=== PATIENT | male | born 1980 | race Caucasian/White ===

== ENCOUNTER 2016-05-29 11:18 | Emergency (ER) | payer OTHER ==
[2016-05-29 12:43] VITALS: BP 181/125
--- NOTE | 2016-05-29 12:44 | UC ---
Lower Extremity/Ankle HPI - HPI Summary HPI Summary: right great toe pain x several days. No prior hx gout. No injury. - History of Current Complaint Chief Complaint: UCLowerExtremity Stated Complaint: RIGHT FOOT PAIN Time Seen by Provider: 05/29/16 12:40 Hx Obtained From: Patient Onset/Duration: Gradual Onset, Lasting Days, Still Present Severity Initially: Moderate Severity Currently: Moderate Pain Intensity: 7 Pain Scale Used: 0-10 Numeric Aggravating Factor(s): Standing, Ambulation Alleviating Factor(s): Nothing Able to Bear Weight: No - Risk Factors Gout Risk Factors: Male, Hypertension, Obesity DVT Risk Factors: Negative Septic Arthritis Risk Factor: Negative - Allergies/Home Medications Allergies/Adverse Reactions: Allergies Allergy/AdvReac Type Severity Reaction Status Date / Time No Known Allergies Allergy Verified 05/29/16 12:37 PMH/Surg Hx/FS Hx/Imm Hx Previously Healthy: No GI/ History Of: Reports: Ulcer - Surgical History Surgical History: None - Family History Known Family History: Positive: Hypertension, Other - no known hx gout, father with two hip replacements Negative: Diabetes - Social History Occupation: Employed Full-time Lives: With Family Alcohol Use: Daily Substance Use Type: None Smoking Status (MU): Current Some Day Smoker Type: eCigarettes, Smokeless Tobacco Length of Time of Smoking/Using Tobacco: since age 18 Have You Smoked in the Last Year: Yes Review of Systems Constitutional: Negative Skin: Negative Eyes: Negative ENT: Negative Respiratory: Negative Cardiovascular: Negative Gastrointestinal: Negative Genitourinary: Negative Motor: Negative Neurovascular: Negative Musculoskeletal: Arthralgia Neurological: Negative Psychological: Negative All Other Systems Reviewed And Are Negative: Yes Physical Exam Triage Information Reviewed: Yes Appearance: Ill-Appearing, Pain Distress, Obese Vital Signs: Initial Vital Signs Temp 98.3 F 05/29/16 12:25 Pulse 103 05/29/16 12:25 Resp 16 05/29/16 12:25 BP 181/125 05/29/16 12:25 Pulse Ox 99 05/29/16 12:25 elevated BP noted Vital Signs Reviewed: Yes Eyes: Positive: Conjunctiva Clear ENT: Positive: Normal ENT inspection Neck: Positive: Supple, Nontender Respiratory: Positive: No respiratory distress Cardiovascular: Positive: RRR, Pulses Normal, Brisk Capillary Refill Musculoskeletal: Positive: Strength Intact, ROM Intact, Other: - right great toe exquisitely painful to touch. Full ROM. No deformity. Redness without red streaks. No calf tenderness. Neurological: Positive: Alert, Muscle Tone Normal Psychological Exam: Normal Skin: Positive: Other - red right great toe Lower Extremity Course/Dx - Course Course Of Treatment: discussed eval for gout and pt declines xray and bloodwork. Will follow up with his PCP. - Differential Dx/Diagnosis Differential Diagnosis/HQI/PQRI: Cellulitis, Fracture (Closed), Gout, Phlebitis Provider Diagnoses: acute gout Discharge - Discharge Plan Condition: Stable Disposition: HOME Prescriptions: HYDROcodone/ACETAMIN 5-325 MG* [Lynn 5-325 TAB*] 1 tab PO Q4H PRN #15 tab MDD 6 PRN Reason: Pain Indomethacin CAP* [Indocin CAP*] 50 mg PO TID PRN #20 cap PRN Reason: Pain Patient Education Materials: Crutch Instructions (ED), Low Purine Diet (ED), Gout (ED) Forms: *Work Release Referrals: Anton Green MD [Medical Doctor] - Non Staff,Doctor [Primary Care Provider] -
== END 2016-05-29 13:12 | disposition home or self-care (01) ==
LOC: UCCORT 11:18
DX: M10.9 Gout, unspecified (principal); E66.9 Obesity, unspecified; F17.210 Nicotine dependence, cigarettes, uncomplicated
CPT/HCPCS: 99213; G0463

== ENCOUNTER 2016-10-19 09:08 | Emergency (ER) | payer OTHER ==
[2016-10-19 09:57] VITALS: BP 159/118
--- NOTE | 2016-10-19 09:58 | UC ---
Upper Extremity HPI - HPI Summary HPI Summary: Right middle finger crush injury. 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 Non diabetic. no bleeding. Tetanus 2011. - History of Current Complaint Chief Complaint: UCUpperExtremity Stated Complaint: RIGHT MIDDLE FINGER INJURY 10/18 Time Seen by Provider: 10/19/16 09:50 Hx Obtained From: Patient Onset/Duration: Sudden Onset Severity Initially: Severe Severity Currently: Moderate Location Of Pain: Is Discrete @ - distal right 3rd digit. Character: Sharp, Aching Aggravating Factor(s): Movement, Lifting, Flexion, Extension, Internal/External Rotation, Abduction Alleviating Factor(s): Rest Associated Signs And Symptoms: Positive: Swelling, Bruising - Allergies/Home Medications Allergies/Adverse Reactions: Allergies Allergy/AdvReac Type Severity Reaction Status Date / Time No Known Allergies Allergy Verified 10/19/16 09:38 Home Medications: Home Medications Acetaminophen TAB* [Tylenol TAB*] 650 mg PO Q4H PRN 10/19/16 [History Confirmed 10/19/16] PMH/Surg Hx/FS Hx/Imm Hx Cardiovascular History Of: Reports: Hypertension GI/ History Of: Reports: Ulcer - Surgical History Surgical History: None - Family History Known Family History: Positive: Hypertension, Other - no known hx gout, father with two hip replacements Negative: Diabetes - Social History Occupation: Employed Full-time Alcohol Use: Daily Alcohol Amount: "COUPLE BEERS/DAY" Substance Use Type: None Smoking Status (MU): Smoker, Current Status Unknown Type: eCigarettes Length of Time of Smoking/Using Tobacco: since age 18 Have You Smoked in the Last Year: Yes - Immunization History Most Recent Influenza Vaccination: 2015 Most Recent Tetanus Shot: 2011 Most Recent Pneumonia Vaccination: NONE Review of Systems All Other Systems Reviewed And Are Negative: Yes Physical Exam Triage Information Reviewed: Yes Appearance: Well-Appearing, No Pain Distress, Well-Nourished Vital Signs: Initial Vital Signs Temp 97.7 F 10/19/16 09:39 Pulse 74 10/19/16 09:39 Resp 20 10/19/16 09:39 BP 159/118 10/19/16 09:39 Pulse Ox 100 10/19/16 09:39 Vital Signs Reviewed: Yes Eye Exam: Normal ENT Exam: Normal Neck exam: Normal Respiratory Exam: Normal Cardiovascular Exam: Normal Abdominal Exam: Normal Musculoskeletal Exam: Other - right distal phalynx and nail bed tenderness and bruising under the nail bed. no obvious deformity. Psychological Exam: Normal Skin Exam: Normal - No laceration. Procedures - Incision and Drainage Site: right middle finder nail bed hematoma. 16guage needle gently drilled. Anesthesia: Other - none. Instrument(s): Needle Packing: Other - no packing. betadine prep. Upper Extremity Course/Dx - Differential Dx/Diagnosis Provider Diagnoses: finger injury. crush injury. subungeal hematoma. Discharge - Discharge Plan Condition: Good Disposition: HOME Patient Education Materials: Subungual Hematoma (ED) Forms: *Work Release Referrals: No Primary Care Phys,NOPCP [Primary Care Provider] -
--- NOTE | 2016-10-19 10:17 | RAD ---
INDICATION: Right third digit injury COMPARISON: None TECHNIQUE: AP, lateral, and oblique views were obtained. FINDINGS: The bony structures, joint spaces, and soft tissues are normal for age. IMPRESSION: NO ACUTE BONY FINDINGS
== END 2016-10-19 10:29 | disposition home or self-care (01) ==
LOC: UCCORT 09:08
DX: S67.192A Crushing injury of right middle finger, initial encounter (principal); X58.XXXA Exposure to other specified factors, initial encounter; Y93.9 Activity, unspecified; Y92.9 Unspecified place or not applicable; I10 Essential (primary) hypertension; Z72.0 Tobacco use
CPT/HCPCS: 11740; 73140; 99211; G0463

== ENCOUNTER 2017-11-24 12:30 | Emergency (ER) | payer SELFPAY ==
--- NOTE | 2017-11-24 13:09 | UC ---
Back Pain HPI - HPI Summary HPI Summary: Patient is a 37-year-old male presents complaining of back pain. 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 Patient states he has long had right lower back sciatica pain after shoveling snow several years ago. Patient states over the last 5 days he's had progressive pain up and down his back. Patient is intermittently has tingling in his arms but not persistent. Patient denies any weakness. Patient has taken 800 mg 1 dose with little improvement. Patient states he is continuing to work every day but today his boss he needed to come her to get checked out. 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 pt has not told his boss. Pt declined WC processess. No bowel or bladder change. Patient does not have a PCP. Patient has a prescription for blood pressure medication but does not take it Pt's medications reviewed this visit - History of Current Complaint Stated Complaint: BACK PAIN Time Seen by Provider: 11/24/17 13:08 Hx Obtained From: Patient Timing: Constant Severity Initially: Moderate Severity Currently: Moderate Pain Scale Used: 0-10 Numeric Back Pain: Is Diffuse - Allergies/Home Medications Allergies/Adverse Reactions: Allergies Allergy/AdvReac Type Severity Reaction Status Date / Time No Known Allergies Allergy Verified 11/24/17 13:11 Home Medications: Home Medications Ibuprofen TAB* [Motrin TAB* 800 MG] 800 mg PO DAILY PRN 11/24/17 [History Confirmed 11/24/17] PMH/Surg Hx/FS Hx/Imm Hx Previously Healthy: Yes - Surgical History Surgical History: None - Family History Known Family History: Positive: Hypertension, Other - no known hx gout, father with two hip replacements Negative: Diabetes - Social History Occupation: Employed Full-time Lives: With Family Alcohol Use: Daily Alcohol Amount: "COUPLE BEERS/DAY" Substance Use Type: None Smoking Status (MU): Smoker, Current Status Unknown Type: eCigarettes Length of Time of Smoking/Using Tobacco: since age 18 Have You Smoked in the Last Year: Yes - Immunization History Most Recent Influenza Vaccination: 2016 Most Recent Tetanus Shot: 2012 Most Recent Pneumonia Vaccination: NONE Review of Systems Constitutional: Negative All Other Systems Reviewed And Are Negative: Yes Physical Exam - Summary Physical Exam Summary: Vital Signs Reviewed: Yes A+Ox3, no distress Eyes: Conjunctiva Clear, ISABEL. EOM intact and full ENT: Hearing grossly normal TM x 2 clear, mmoist, uvula midline, no exudate, no erythema Neck: Positive: Supple Respiratory: Positive: No respiratory distress, No accessory muscle use + CTA throughout no w/r Cardiovascular: RRR nl s1, s2 no m/r CBT <2 sec abd soft + BS nt/nd no guarding, no distension Musculoskeletal Exam: No spinous process pain c/t/l/s Full AROM c spine + diffuse paraspinous process pain b/l 5/5 abduct shoulder flex/ext elbow 5/5 SLE f/e knee, ankle Neurological: Positive: Alert, + sensation throughout + sensation throughout b /l 2+ patellar, achilles b/l without clonus full strength Psychological: Positive: Normal Response To Family Skin: Positive: no rash, no ecchymosis Triage Information Reviewed: Yes Vital Signs Reviewed: Yes Back Pain Course/Dx - Course Course Of Treatment: Patient presents with diffuse paraspinal back pain. Patient works for [employer]. Patient states history of back pain in the past but this is different. Patient took Motrin times once with little improvement. Patient hasn't taken anything else for pain. Patient continued to work. On exam, patient paraspinal pain but neurologically intact. Recommend Motrin and Tylenol every 3 hours. Flexeril for nighttime - precautions discussed. Recommend heat and stretching. Patient out of work today with lifting restrictions starting next week. Patient given a prescription for physical therapy. Patient also referred to physician care referral. Patient recommended to go to ED if pain increases or any other symptoms. Patient comfortable in agreement with plan. Pt recommend resume htn meds - Differential Dx/Diagnosis Provider Diagnoses: back pain. muscle spasm Discharge - Sign-Out/Discharge Documenting (check all that apply): Discharge/Admit/Transfer - Discharge Plan Condition: Stable Disposition: HOME Prescriptions: Cyclobenzaprine TAB* [Flexeril 10 MG TAB*] 10 mg PO BEDTIME PRN #10 tab PRN Reason: muscle spasm Patient Education Materials: Muscle Spasm (ED), Back Pain (ED) Forms: *Gen. Provider Communication Referrals: [facility] [Outside] Additional Instructions: - Okay to alternate ibuprofen (Advil, Motrin) 600mg and Tylenol product (Tylenol ) every 3hours as needed for pain. Take with food. Do NOT take for more than 4- [address], operate machinery or drink alcohol while taking [place]. This medication may cause constipation - use a stool softner as needed -Take flexeril - muscle relaxer as prescribed at bedtime -Apply moist heat to your back for 20 minutes at a time, 4-5 times a day. Once your muscles are warm, slow gentle stretching exercises are important -If you pain is uncontrolled, you have extremity weakness or other concerns it is recommended you go to an emergency department for further treatment - you have been given a referral for physical therapy and the physician referral center to establish with a new PCP - Billing Disposition and Condition Condition: STABLE Disposition: Home
[2017-11-24 13:11] VITALS: BP 149/100
== END 2017-11-24 13:53 | disposition home or self-care (01) ==
LOC: UCCORT 12:30
DX: Z91.19 Patient's noncompliance with other medical treatment and regimen (principal); M62.830 Muscle spasm of back; M54.9 Dorsalgia, unspecified; F17.210 Nicotine dependence, cigarettes, uncomplicated
CPT/HCPCS: 99212; G0463

== ENCOUNTER 2018-09-13 20:46 | Emergency (ER) | payer SELFPAY ==
--- NOTE | 2018-09-13 21:38 | UC ---
UC General HPI - HPI Summary HPI Summary: Today at work felt multiple low level shocks in L hand but felt R arm pain afterwards. 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 Denies loc, being knocked back or any burn echavarria on body. He reports it feeling less than an electrical fence. - History of Current Complaint Chief Complaint: UCGeneralIllness Stated Complaint: ELECTRICAL SHOCK Time Seen by Provider: 09/13/18 21:12 Hx Obtained From: Patient Pain Intensity: 2 - Allergy/Home Medications Allergies/Adverse Reactions: Allergies Allergy/AdvReac Type Severity Reaction Status Date / Time No Known Allergies Allergy Verified 09/13/18 21:01 PMH/Surg Hx/FS Hx/Imm Hx Cardiovascular History: Hypertension - Surgical History Surgical History: None - Family History Known Family History: Positive: Hypertension, Other - no known hx gout, father with two hip replacements Negative: Diabetes - Social History Alcohol Use: Daily Alcohol Amount: "COUPLE BEERS/DAY" Substance Use Type: None Smoking Status (MU): Never Smoked Tobacco Type: eCigarettes Length of Time of Smoking/Using Tobacco: since age 18 Have You Smoked in the Last Year: Yes - Immunization History Most Recent Influenza Vaccination: 2016 Most Recent Tetanus Shot: 2012 Most Recent Pneumonia Vaccination: NONE Review of Systems All Other Systems Reviewed And Are Negative: Yes Constitutional: Positive: Negative Skin: Negative: Rash, Bruising, Other - no open areas. Respiratory: Negative: Shortness Of Breath Cardiovascular: Negative: Palpitations, Chest Pain Motor: Negative: Decreased ROM, Weakness Neurological: Negative: Headache, Weakness Psychological: Negative: Depressed Physical Exam Triage Information Reviewed: Yes Appearance: Well-Appearing Vital Signs: Initial Vital Signs Temp 98.5 F 09/13/18 20:54 Pulse 84 09/13/18 20:54 Resp 20 09/13/18 20:54 BP 176/122 09/13/18 20:54 Pulse Ox 98 09/13/18 20:54 Vital Signs Reviewed: Yes Neck: Positive: Supple Respiratory Exam: Normal Cardiovascular Exam: Normal Neurological: Positive: Alert, Muscle Tone Normal, Other: - Good tank officer strength in UE bilat. Negative: Fatigued, Lethargic Psychological: Positive: Age Appropriate Behavior Skin: Negative: Other - no burn echavarria or entry/exit wounds Course/Dx - Course Course Of Treatment: Electrocuted today by 24volts at work. Has R arm pain w/ this but on exam no entry/exit wounds or changes to strength. EKG did not show arrhythmia and UA was unremarkable. He was instructed to go to ED for observation should he experience any new symptoms. EKG did show LVH which is chronic and assoc. w/ his uncontrolled elevated BP. Today we rechecked and diastolic was still >110. He has not seen his pcp in over a year and has Lisinopril at home but does not take regularly It was recommended he go to ED for BP control but he has decided to go home and start taking meds as rx'd. we discussed risks. any new symptoms especially chest pain, oakley, should be evaluated at ED. he verbalized understanding. - Diagnoses Provider Diagnosis: Electrical shock of hand, Uncontrolled hypertension Discharge - Sign-Out/Discharge Documenting (check all that apply): Patient Departure All imaging exams completed and their final reports reviewed: No Studies - Discharge Plan Condition: Good Disposition: HOME-RECOMMEND TO ED Patient Education Materials: Electrical Palm in Adults (ED) Referrals: No Primary Care Phys,NOPCP [Primary Care Provider] - Additional Instructions: Please follow up with your pcp about your blood pressure as it seems as if its been elevated for quite some time. it is my recommendation that you go to the emergency room given the how high it is. you and i discussed pros and cons and you have decided to go home and start taking your meds. - Billing Disposition and Condition Condition: GOOD Disposition: Home-Recommend to ED
[2018-09-13 21:46] VITALS: BP 166/122
== END 2018-09-13 22:01 | disposition home health service (06) ==
LOC: UCEAST 20:46
DX: T75.4XXA Electrocution, initial encounter (principal); W86.1XXA Exposure to industrial wiring, appliances and electrical machinery, initial encounter; Y92.9 Unspecified place or not applicable; Y99.0 Civilian activity done for income or pay; I51.7 Cardiomegaly; I10 Essential (primary) hypertension
CPT/HCPCS: 81003; 93005; 99211; G0463